=== PATIENT | male | born 1980 | race American Indian/Alaskan Native ===

== ENCOUNTER 2017-08-16 17:35 | Emergency (ER) | payer SELFPAY ==
[2017-08-16 17:57] VITALS: BP 106/70
[2017-08-16] MEDS ORDERED: KEFLEX PO ONE (18:27)
--- NOTE | 2017-08-16 18:29 | Emergency Department Report ---
ED Laceration HPI - HPI Chief Complaint: Wound/Laceration Stated Complaint: LEFT RING FINGER LACERATION Time Seen by Provider: 08/16/17 18:24 Occurred When: Today Location: Upper Extremity Severity: mild Tetanus Status: Up to Date Laceration Symptoms: No Foreign Body Sensation, No Numbness, No Weakness, No Pain ED Review of Systems ROS: Stated complaint: LEFT RING FINGER LACERATION Other details as noted in HPI Comment: Unobtainable due to pts medical conditions Constitutional: no symptoms reported, see HPI. denies: chills Eyes: as per HPI. denies: eye pain ENT: as per HPI. denies: ear pain, throat pain Respiratory: no symptoms reported, see HPI. denies: cough, orthopnea Cardiovascular: as per HPI. denies: chest pain, palpitations, dyspnea on exertion, orthopnea Endocrine: no symptoms reported, see HPI. denies: excessive sweating, flushing , intolerance to cold, intolerance to heat Gastrointestinal: as per HPI. denies: abdominal pain, nausea, vomiting Genitourinary: as per HPI. denies: urgency, dysuria Musculoskeletal: as per HPI. denies: back pain Skin: as per HPI, other (lac). denies: rash, lesions Neurological: as per HPI. denies: headache, weakness Psychiatric: as per HPI. denies: anxiety, depression Hematological/Lymphatic: as per HPI. denies: easy bleeding ED Past Medical Hx - Past Medical History Previous Medical History?: Yes Additional medical history: ulcers,back pain - Surgical History Past Surgical History?: Yes Additional Surgical History: ankle surgery - Social History Smoking Status: Never Smoker Substance Use Type: Alcohol - Medications Home Medications: Home Medications Medication Instructions Recorded Confirmed Last Taken Type Cephalexin [Keflex] 500 mg PO Q12HR #20 cap 08/16/17 Unknown Rx traMADol [Ultram] 50 mg PO BID PRN #12 tablet 08/16/17 Unknown Rx Laceration Physical Exam - Exam General: Vital signs noted. No distress. Alert and acting appropriately. Wound Length (cm): 1 (avulsion wound. cutting yam. ) Laceration Location: Upper Extremity Laceration Exam: Yes Normal Distal CMS, No Foreign Body, No Exposed Tendon, Vessel, or Nerve, No Tendon Injury ED Course Vital Signs 08/16/17 17:52 Temperature 97.9 F Pulse Rate 84 Respiratory 18 Rate Blood Pressure 106/70 O2 Sat by Pulse 98 Oximetry - Reevaluation(s) Reevaluation #1: 08/16/17 18:30 tdap utd wound care provided dressing full rom n/v intact rapid cap refill bleeding would not stop at home drank beers today no thinners explained to pt it is bc of type of wound keflex dc home w dc poc Critical care attestation.: If time is entered above; I have spent that time in minutes in the direct care of this critically ill patient, excluding procedure time. ED Disposition Clinical Impression: Laceration Disposition: DC-01 TO HOME OR SELFCARE Is pt being admited?: No Does the pt Need Aspirin: No Condition: Stable Instructions: Skin Avulsion (ED) Additional Instructions: keep pressure dressing on for next 12-18 hours elevate ice no alcohol or blood thinners like aspirin med as ordered today once you take dressing down you will change it every 12 hours. apply dry guaze and tape until it heals will take a week or so to granulate in keep covered an clean to prevent infection Prescriptions: Cephalexin [Keflex] 500 mg PO Q12HR #20 cap traMADol [Ultram] 50 mg PO BID PRN #12 tablet PRN Reason: Pain Referrals: PRIMARY CARE, [Primary Care Provider] - 3-5 Days RAFA KEN MD [Staff Physician] - 3-5 Days Time of Disposition: 18:27
== END 2017-08-16 18:45 | disposition home or self-care (01) ==
LOC: ED 17:35
DX: S61.215A Laceration without foreign body of left ring finger without damage to nail, initial encounter (principal); X58.XXXA Exposure to other specified factors, initial encounter; Y93.89 Activity, other specified; Y92.89 Other specified places as the place of occurrence of the external cause; Y99.8 Other external cause status
CPT/HCPCS: 99283

== ENCOUNTER 2018-07-01 09:57 | Emergency (ER) | payer MEDICARE ==
[2018-07-01 10:12] VITALS: BP 125/72
--- NOTE | 2018-07-01 11:26 | Emergency Department Report ---
ED Lower Extremity HPI - General Chief Complaint: Extremity Injury, Lower Stated Complaint: PAIN IN GROWING Time Seen by Provider: 07/01/18 11:06 Source: patient Mode of arrival: Ambulatory Limitations: No Limitations - History of Present Illness Initial Comments: This is a 38-year-old male who presents with left groin pain that is radiating down the left lower extremity. Patient symptoms started two and a half weeks ago. He reports pain as achy sensation. Patient states pain is worse with range of motion. It cause loss of strength and balance. At times pain is 8 out of 10 on pain scale and worse with weight bearing or movement. He is currently not taking anything for pain. Patient denies discharge, dysuria , frequency, urgency, recent injury. MD Complaint: leg injury (right) Onset/Timin -: week(s) Injury: Hip: Right, Leg: Right Type of Injury: unknown Place: home Severity: moderate Severity scale (0 -10): 8 Improves With: nothing Worsens With: weight bearing, movement Associated Symptoms: able to partially bear weight, ambulatory Treatments Prior to Arrival: NSAIDS - Related Data Previous Rx's Medication Instructions Recorded Last Taken Type cephALEXin [Keflex] 500 mg PO Q12HR #20 cap 08/16/17 Unknown Rx traMADol [Ultram] 50 mg PO BID PRN #12 tablet 08/16/17 Unknown Rx Cyclobenzaprine [Flexeril 10 MG 10 mg PO TID PRN #15 tablet 07/01/18 Unknown Rx TAB] Ibuprofen [Motrin 800 MG tab] 800 mg PO Q8HR PRN #15 tablet 07/01/18 Unknown Rx Allergies Allergy/AdvReac Type Severity Reaction Status Date / Time No Known Allergies Allergy Verified 07/01/18 10:09 ED Review of Systems ROS: Stated complaint: PAIN IN GROWING Other details as noted in HPI Constitutional: denies: chills, fever Respiratory: denies: cough, shortness of breath, wheezing Cardiovascular: denies: chest pain, palpitations Gastrointestinal: denies: abdominal pain, nausea, diarrhea Musculoskeletal: arthralgia (right hip radiating to right foot). denies: back pain, joint swelling Skin: denies: rash, lesions Neurological: denies: headache, weakness, paresthesias Psychiatric: denies: anxiety, depression ED Past Medical Hx - Past Medical History Additional medical history: ulcers,back pain - Surgical History Additional Surgical History: ankle surgery - Social History Smoking Status: Never Smoker Substance Use Type: Alcohol - Medications Home Medications: Home Medications Medication Instructions Recorded Confirmed Last Taken Type cephALEXin [Keflex] 500 mg PO Q12HR #20 cap 08/16/17 Unknown Rx traMADol [Ultram] 50 mg PO BID PRN #12 tablet 08/16/17 Unknown Rx Cyclobenzaprine [Flexeril 10 MG 10 mg PO TID PRN #15 tablet 07/01/18 Unknown Rx TAB] Ibuprofen [Motrin 800 MG tab] 800 mg PO Q8HR PRN #15 tablet 07/01/18 Unknown Rx ED Physical Exam - General Limitations: No Limitations General appearance: alert, in no apparent distress - Respiratory Respiratory exam: Present: normal lung sounds bilaterally. Absent: respiratory distress - Cardiovascular Cardiovascular Exam: Present: regular rate, normal rhythm. Absent: systolic murmur, diastolic murmur, rubs, gallop - GI/Abdominal GI/Abdominal exam: Present: soft, normal bowel sounds - Expanded Lower Extremity Exam Right Hip exam: Present: full ROM, tenderness. Absent: swelling, abrasion, laceration , ecchymosis, deformity, crepidus, dislocation, erythema, external rotation, internal rotation, shortening, pelvic stability Upper Leg exam: Present: normal inspection, full ROM Knee exam: Present: normal inspection, full ROM Lower Leg exam: Present: full ROM, tenderness. Absent: swelling, abrasion, laceration, ecchymosis, deformity, crepidus, dislocation, erythema, palpable cord, Gerson's sign Ankle exam: Present: normal inspection, full ROM Foot/Toe exam: Present: normal inspection, full ROM Neuro vascular tendon exam: Present: no vascular compromise Gait: Positive: observed and limited by pain - Back Exam Back exam: Present: normal inspection, full ROM. Absent: CVA tenderness (R), CVA tenderness (L), rash noted - Neurological Exam Neurological exam: Present: alert, oriented X3 - Psychiatric Psychiatric exam: Present: normal affect, normal mood - Skin Skin exam: Present: warm, dry, intact, normal color. Absent: rash ED Course Vital Signs 07/01/18 10:09 Temperature 97.6 F Pulse Rate 87 Respiratory 16 Rate Blood Pressure 125/72 O2 Sat by Pulse 98 Oximetry ED Lower Extremity MDM - Radiology Data Radiology results: report reviewed LLE VENOUS DUPLEX COMPLETED. VAS LAB PRELIMINARY REPORT; NO EVIDENCE OF DVT/SVT NOTED IN VESSELS/SEGMENTS EXAMINED. PHYSICIANS REPORT TO FOLLOW...(RSK) - Medical Decision Making Patient was examined by myself in fast track. Vitals are normal and patient is in no acute distress. Obtained a duplex Doppler of the left lower extremity. Negative DVT or SVT. Patient informed of results. Start ibuprofen and cyclobenzaprine for sciatica. Plan discussed with patient to discharge home and treat outpatient. He agrees with ER plan. Patient discharged home in stable condition. Follow up with PCP, Yevgeniy Davalos in 2-3 days for continuance of care. Critical care attestation.: If time is entered above; I have spent that time in minutes in the direct care of this critically ill patient, excluding procedure time. ED Disposition Clinical Impression: Left leg pain, Sciatica of left side without back pain Disposition: TO HOME OR SELFCARE Is pt being admited?: No Does the pt Need Aspirin: No Condition: Stable Instructions: Sciatica (ED), Lumbar Radiculopathy (ED) Additional Instructions: Rest Use ice or heat on affected area for 20 minutes and off for 2 hours. Take pain medication as needed for pain. Don't drive or operate heavy machinery while taking muscle relaxers because they may cause drowsiness. Follow up with Primary Care Provider in 2-3 days. Prescriptions: Cyclobenzaprine [Flexeril 10 MG TAB] 10 mg PO TID PRN #15 tablet PRN Reason: Muscle Spasm Ibuprofen [Motrin 800 MG tab] 800 mg PO Q8HR PRN #15 tablet PRN Reason: Pain , Severe (7-10) Referrals: YEVGENIY RENNER MD [Referring] - 3-5 Days MARIANA SKINNER MD [Staff Physician] - 3-5 Days Forms: Work/School Release Form(ED) Time of Disposition: 12:48 Print Language: GREENLANDIC
[2018-07-01] MEDS ORDERED: MOTRIN PO ONE (12:40)
== END 2018-07-01 13:10 | disposition home or self-care (01) ==
LOC: ED 09:57
DX: M54.32 Sciatica, left side (principal)
CPT/HCPCS: 99283

== ENCOUNTER 2021-10-12 14:34 | Emergency (ER) | payer SELFPAY ==
--- NOTE | 2021-10-12 17:14 | Emergency Department Report ---
ED Chest Pain HPI - General Chief Complaint: Chest Pain Stated Complaint: CHEST PAIN Time Seen by Provider: 10/12/21 16:30 Source: EMS Mode of arrival: Stretcher Limitations: No Limitations - History of Present Illness Initial Comments: 41-year-old male with no significant past medical history presents to the hospital complaining of intermittent chest pain for last 2 days. Patient woke up in the morning 2 days ago with palpitations, sharp left-sided chest pain, and mild shortness of breath. His blood pressure is 175/111. Throughout the last 2 days patient's palpitations have resolved but he is having intermittent aching left-sided chest pain without aggravating or relieving factors. His systolic blood pressure has remained in the 150s range with diastolic greater than 99. He saw his PMD today and had a EKG performed in the office. He was informed to go to the ED. He drove home then called ems for ed transport. EMS blood pressure also reported a systolic of 160s as per pt. Patient received aspirin 324 mg and nitroglycerin x4 in route to the hospital pain level decreasing from a 4 to a 1. Patient not currently on BP medications. He denies smoking. Denies immediate family history of CAD but has 2 cousins in their late 40s and early 50s that had a recent MIs. Patient states he has borderline high cholesterol and was directed to amend his diet and exercise. He denies recent travel, calf tenderness, leg edema, history of PE/DVT PMD Dr. Yevgeniy Espinoza Outpatient EKG performed at 12:46 PM reviewed. Normal sinus rhythm with early repole. No signs of reciprocal changes or ischemia. Severity scale (0 -10): 4 - Related Data Previous Rx's Medication Instructions Recorded Last Taken Type cephALEXin [Keflex] 500 mg PO Q12HR #20 cap 08/16/17 Unknown Rx traMADoL [Ultram] 50 mg PO BID PRN #12 tablet 08/16/17 Unknown Rx Cyclobenzaprine [Flexeril 10 MG 10 mg PO TID PRN #15 tablet 07/01/18 Unknown Rx TAB] Ibuprofen [Motrin 800 MG tab] 800 mg PO Q8HR PRN #15 tablet 07/01/18 Unknown Rx Allergies Allergy/AdvReac Type Severity Reaction Status Date / Time No Known Allergies Allergy Verified 10/12/21 20:17 Heart Score - HEART Score History: Slightly suspicious EKG: Non-specific Age: < 45 Risk factors: 1-2 risk factors Troponin: < normal limit HEART Score: 2 - EKG Read Time Time EKG Completed: 17:16 EKG Read Time: 17:21 ED Review of Systems ROS: Stated complaint: CHEST PAIN Other details as noted in HPI Comment: All other systems reviewed and negative ED Past Medical Hx - Past Medical History Additional medical history: ulcers,back pain - Surgical History Additional Surgical History: ankle surgery - Social History Smoking Status: Never Smoker Substance Use Type: Alcohol - Medications Home Medications: Home Medications Medication Instructions Recorded Confirmed Last Taken Type cephALEXin [Keflex] 500 mg PO Q12HR #20 cap 08/16/17 10/12/21 Unknown Rx traMADoL [Ultram] 50 mg PO BID PRN #12 tablet 08/16/17 10/12/21 Unknown Rx Cyclobenzaprine [Flexeril 10 MG 10 mg PO TID PRN #15 tablet 07/01/18 10/12/21 Unknown Rx TAB] Ibuprofen [Motrin 800 MG tab] 800 mg PO Q8HR PRN #15 tablet 07/01/18 10/12/21 Unknown Rx ED Physical Exam - General Limitations: No Limitations - Other Other exam information: General: No acute distress Head: Atraumatic Eyes: normal appearance ENT: Moist mucous membranes Neck: Normal appearance, no midline tenderness Chest: Clear to auscultation bilaterally CV: Regular rate and rhythm Abdomen: Soft, normal bowel sounds, nontender, nondistended, no rebound or guarding Back: Normal inspection Extremity: Normal inspection, full range of motion, no calf tenderness or leg edema Neuro: Alert O x 3, no facial asymmetry, speech clear, no gross motor sensory deficit Psych: Appropriate behavior Skin: No rash ED Course Vital Signs 10/12/21 10/12/21 10/12/21 14:45 16:38 17:24 Temperature 98.9 F 98.3 F Pulse Rate 88 91 H 94 H Respiratory 16 16 22 Rate Blood Pressure 118/82 132/85 [Left] O2 Sat by Pulse 99 99 97 Oximetry 10/12/21 20:15 Temperature 98.1 F Pulse Rate 83 Respiratory 18 Rate Blood Pressure 132/87 [Left] O2 Sat by Pulse 99 Oximetry REYNALDO score - Reynaldo Score Age > 65: (0) No Aspirin use within the Past 7 Days: (0) No 3 or more CAD Risk Factors: (0) No 2 or more Angina events in past 24 hrs: (1) Yes Known CAD with more than 50% Stenosis: (0) No Elevated Cardiac Markers: (0) No ST Deviation Greater than 0.5mm: (0) No REYNALDO Score: 1 ED Medical Decision Making - Lab Data Result diagrams: 10/12/21 17:14 10/12/21 17:14 Lab Results 10/12/21 10/12/21 10/12/21 Range/Units 17:14 17:14 17:14 WBC 6.5 (4.5-11.0) K/mm3 RBC 4.59 (3.65-5.03) M/mm3 Hgb 14.9 (11.8-15.2) gm/dl Hct 45.2 (35.5-45.6) % MCV 99 H (84-94) fl MCH 32 (28-32) pg MCHC 33 (32-34) % RDW 12.5 L (13.2-15.2) % Plt Count 227 (140-440) K/mm3 Lymph % (Auto) 10.3 L (13.4-35.0) % Mora % (Auto) 6.7 (0.0-7.3) % Eos % (Auto) 0.7 (0.0-4.3) % Baso % (Auto) 0.6 (0.0-1.8) % Lymph # (Auto) 0.7 L (1.2-5.4) K/mm3 Mora # (Auto) 0.4 (0.0-0.8) K/mm3 Eos # (Auto) 0.0 (0.0-0.4) K/mm3 Baso # (Auto) 0.0 (0.0-0.1) K/mm3 Seg Neutrophils % 81.7 H (40.0-70.0) % Seg Neutrophils # 5.3 (1.8-7.7) K/mm3 D-Dimer 185.61 (0-234) ng/mlDDU Sodium 137 (137-145) mmol/L Potassium 4.3 (3.6-5.0) mmol/L Chloride 98.5 (98-107) mmol/L Carbon Dioxide 25 (22-30) mmol/L Anion Gap 18 mmol/L BUN 9 (9-20) mg/dL Creatinine 0.7 L (0.8-1.3) mg/dL Estimated GFR > 60 ml/min BUN/Creatinine Ratio 13 % Glucose 191 H (75-100) mg/dL Calcium 9.5 (8.4-10.2) mg/dL Total Bilirubin 0.80 (0.1-1.2) mg/dL AST 61 H (5-40) units/L ALT 70 H (7-56) units/L Alkaline Phosphatase 55 (35-129) units/L Troponin T < 0.010 (0.00-0.029) ng/mL Total Protein 6.8 (6.3-8.2) g/dL Albumin 4.6 (3.9-5) g/dL Albumin/Globulin Ratio 2.1 % Triglycerides (2-149) mg/dL Cholesterol (50-199) mg/dL LDL Cholesterol Direct (50-130) mg/dL HDL Cholesterol (40-59) mg/dL Cholesterol/HDL Ratio % 10/12/21 10/12/21 Range/Units 17:14 19:45 WBC (4.5-11.0) K/mm3 RBC (3.65-5.03) M/mm3 Hgb (11.8-15.2) gm/dl Hct (35.5-45.6) % MCV (84-94) fl MCH (28-32) pg MCHC (32-34) % RDW (13.2-15.2) % Plt Count (140-440) K/mm3 Lymph % (Auto) (13.4-35.0) % Mora % (Auto) (0.0-7.3) % Eos % (Auto) (0.0-4.3) % Baso % (Auto) (0.0-1.8) % Lymph # (Auto) (1.2-5.4) K/mm3 Mora # (Auto) (0.0-0.8) K/mm3 Eos # (Auto) (0.0-0.4) K/mm3 Baso # (Auto) (0.0-0.1) K/mm3 Seg Neutrophils % (40.0-70.0) % Seg Neutrophils # (1.8-7.7) K/mm3 D-Dimer (0-234) ng/mlDDU Sodium (137-145) mmol/L Potassium (3.6-5.0) mmol/L Chloride (98-107) mmol/L Carbon Dioxide (22-30) mmol/L Anion Gap mmol/L BUN (9-20) mg/dL Creatinine (0.8-1.3) mg/dL Estimated GFR ml/min BUN/Creatinine Ratio % Glucose (75-100) mg/dL Calcium (8.4-10.2) mg/dL Total Bilirubin (0.1-1.2) mg/dL AST (5-40) units/L ALT (7-56) units/L Alkaline Phosphatase (35-129) units/L Troponin T < 0.010 (0.00-0.029) ng/mL Total Protein (6.3-8.2) g/dL Albumin (3.9-5) g/dL Albumin/Globulin Ratio % Triglycerides 47 (2-149) mg/dL Cholesterol 205 H (50-199) mg/dL LDL Cholesterol Direct 68 (50-130) mg/dL HDL Cholesterol 146 H (40-59) mg/dL Cholesterol/HDL Ratio 1.40 % - EKG Data -: EKG Interpreted by Mi EKG shows normal: sinus rhythm, ST-T waves (NO STEMI) Rate: normal - EKG Data When compared to previous EKG there are: no significant change - Radiology Data Radiology results: report reviewed CHEST 1 VIEW 10/12/2021 4:47 PM INDICATION / CLINICAL INFORMATION: Chest Pain. COMPARISON: None available. FINDINGS: SUPPORT DEVICES: None. HEART / MEDIASTINUM: No significant abnormality. LUNGS / PLEURA: No significant pulmonary or pleural abnormality. No pneumothorax. ADDITIONAL FINDINGS: No significant additional findings. IMPRESSION: 1. No acute findings. - Medical Decision Making 41-year-old male presents to the hospital with intermittent chest pain for the last 2 days. Palpitations have since resolved. Patient not having any persistent associated symptoms and pain is not reproducible. Patient had 3 EKGs today that do not show any ST elevation NH or ischemic findings. Troponin negative x2 With a heart score less than 4. D-dimer below positive threshold with low pretest probability for PE and DVT. During ED stay patient did not receive any additional medications and remained pain-free with normal blood pressure. Patient having persistent elevated blood pressure with home blood pressure cuff however blood pressure in the ED and at doctor's office within normal range. Patient advised to take aspirin 81 mg daily and NSAIDs as needed pain. Outpatient referral for cardiac evaluation and stress testing will be provided. Critical Care Time: No Critical care attestation.: If time is entered above; I have spent that time in minutes in the direct care of this critically ill patient, excluding procedure time. ED Disposition Clinical Impression: Chest pain Disposition: HOME / SELF CARE / HOMELESS Is pt being admited?: No Does the pt Need Aspirin: No Condition: Stable Instructions: Nonspecific Chest Pain, Adult Additional Instructions: Take the medication as prescribed. Follow-up with your doctor or doctor/clinic provided. Return if symptoms worsen as indicated by your discharge instructions. TAKE ASPIRN 81MG DAILY AND MOTRIN NEEDED FOR PAIN FOLLOW UP WITH OUTPATIENT CARDIOLOGY FOR FURTHER EVALUATION BUT PLEASE RETURN IF SYMPTOMS WORSEN. Referrals: YEVGENIY ESPINOZA MD [Primary Care Provider] - 3-5 Days MONA ABEBE MD [Staff Physician] - 2-3 Days Time of Disposition: 21:18
[2021-10-12 17:41] LABS: Basophils % (Auto) 0.6 % (0.0-1.8); Eosinophils % (Auto) 0.7 % (0.0-4.3); Hematocrit 45.2 % (35.5-45.6); Hemoglobin 14.9 gm/dl (11.8-15.2); Lymphocytes # (Auto) 0.7 K/mm3 (1.2-5.4); Lymphocytes % (Auto) 10.3 % (13.4-35.0); Mean Corpuscular HGB Conc 33 % (32-34); Mean Corpuscular Volume 99 fl (84-94); Monocytes # (Auto) 0.4 K/mm3 (0.0-0.8); Monocytes % (Auto) 6.7 % (0.0-7.3); Platelet Count 227 K/mm3 (140-440); Red Blood Count 4.59 M/mm3 (3.65-5.03); Red Cell Distribution Width 12.5 % (13.2-15.2)
--- NOTE | 2021-10-12 17:52 | XRay Report ---
CHEST 1 VIEW 10/12/2021 4:47 PM INDICATION / CLINICAL INFORMATION: Chest Pain. COMPARISON: None available. FINDINGS: SUPPORT DEVICES: None. HEART / MEDIASTINUM: No significant abnormality. LUNGS / PLEURA: No significant pulmonary or pleural abnormality. No pneumothorax. ADDITIONAL FINDINGS: No significant additional findings. IMPRESSION: 1. No acute findings. Signer Name: John Negron MD Signed: 10/12/2021 5:48 PM Workstation Name: [id number]
[2021-10-12 17:57] LABS: Alanine Aminotransferase 70 units/L (7-56); Albumin 4.6 g/dL (3.9-5); Blood Urea Nitrogen 9 mg/dL (9-20); Calcium 9.5 mg/dL (8.4-10.2); Hemolysis Index 11
[2021-10-12 17:59] LABS: BUN/Creatinine Ratio 13; Chol/HDL Ratio 1.4 %
[2021-10-12 20:16] VITALS: BP 132/87
--- NOTE | 2021-10-16 14:09 | Electrocardiograph Report ---
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
--- NOTE | 2021-10-16 14:09 | Electrocardiograph Report ---
[facility] Test Date: 2021-10-12 Test Time: 17:16:54 Pat Name: AIDA DIAZ Department: Room: Gender: M Assistant General Manager: HERMAN : 1980 Requested By: JORGE YORK Order Number: [id number] Reading MD: Román Downs Measurements Intervals [place] Rate: 89 P: 84 [place]: 172 QRS: 63 QRSD: 78 T: 57 QT: 342 QTc: 416 Interpretive Statements Sinus rhythm Probable left atrial enlargement No previous ECG available for comparison Electronically Signed On 10-16-2021 14:08:54 EST by Román Downs
== END 2021-10-12 21:28 | disposition home or self-care (01) ==
LOC: ED 14:34
DX: R07.89 Other chest pain (principal); Z72.89 Other problems related to lifestyle; Z79.899 Other long term (current) drug therapy
CPT/HCPCS: 36415; 71045; 80053; 80061; 84484; 85025; 85379; 93005; 99284